=== PATIENT | male | born 1945 | race Caucasian/White ===

== ENCOUNTER 2018-07-04 05:41 | Day surgery (SDC) ==
[2018-06-28 10:04] LABS: HEMATOCRIT 44.8 % (42.0-52.0); HEMOGLOBIN 15.6 g/dL (14.0-18.0); MCH 32.5 PG (27-31); MCHC 34.8 g/dL (33-37); MCV 93.3 FL (81-99); MPV 10.2 FL (7.4-10.4); RBC 4.8 XMIL (4.7-6.1); RDW 12.6 % (11.5-14.5); WBC 6.93 X1000 (4.8-10.8)
--- NOTE | 2018-06-28 10:04 | EKG Report ---
Test Performed on : 06/28/2018 09:41:22 AM Test Reason : PAT Blood Pressure : / mmHG Vent. Rate : 076 BPM Atrial Rate : 076 BPM P-R Int : 164 ms QRS Dur : 098 ms QT Int : 390 ms P-R-T Axes : 054 032 050 degrees QTc Int : 438 ms Sinus rhythm. with occasional premature ventricular complexes. Otherwise normal ECG When compared with ECG of 20-DEC-2017 13:48, premature ventricular complexes. are now present Confirmed by Gualberto MORA, Juwan ([id number]) on 06/29/2018 8:38:17 AM
[2018-06-28 10:33] LABS: AGAP 9; BUN 16 mg/dL (8-22); CALCIUM 9.7 mg/dL (8.8-10.2); CHLORIDE 108 mmol/L (98-107); COSMO 292; CREATININE 0.8 mg/dL (0.7-1.2); ESTIMATED GFR > 60; GLUCOSE 175 mg/dL (70-104); POTASSIUM 4.8 mmol/L (3.5-5.1); SODIUM 144 mmol/L (136-145); TCO2 27 mmol/L (25-35)
[2018-07-04] MEDS ORDERED: LR 1,000 ML ONE ×2 (06:23→10:12)
[2018-07-04] MEDS ORDERED: PEPCID ONE (06:23)
[2018-07-04] MEDS ORDERED: REGLAN ONE (06:23)
[2018-07-04] MEDS ORDERED: XYLOCAINE-MPF 2% ONE (07:10)
[2018-07-04] MEDS ORDERED: DIPRIVAN 1% ONE (07:10)
[2018-07-04] MEDS ORDERED: KEFZOL 1 GM/D5W 2 GM/100 ML IVPB ONE (07:37)
[2018-07-04] MEDS ORDERED: ZOFRAN ONE (08:01)
[2018-07-04] MEDS ORDERED: DECADRON ONE (08:01)
[2018-07-04] MEDS ORDERED: B & O 15A SUPP ONE (08:12)
[2018-07-04] MEDS ORDERED: NORCO-10 PO PRN (10:30)
[2018-07-04] MEDS ORDERED: BENADRYL LIQUID PO PRN (10:30)
[2018-07-04] MEDS ORDERED: B & O 15A SUPP PR PRN (10:30)
[2018-07-04] MEDS ORDERED: DITROPAN PO PRN (10:30)
[2018-07-04] MEDS ORDERED: NORCO-7.5 PO PRN (10:30)
[2018-07-04] MEDS ORDERED: NORCO-5 PO PRN (10:30)
[2018-07-04] MEDS ORDERED: LABETALOL IV PRN (10:30)
[2018-07-04] MEDS ORDERED: SODIUM CHLORIDE 0.9% INJ PRN (10:30)
[2018-07-04] MEDS ORDERED: PHENERGAN IV PRN (10:30)
--- NOTE | 2018-07-04 10:50 | OPERATIVE NOTE ---
PROCEDURE DATE: 07/04/2018 PREOPERATIVE DIAGNOSIS: Enlarged prostate with obstructive voiding and an elevated PSA with benign transrectal prostate biopsies. POSTOPERATIVE DIAGNOSIS: Enlarged prostate with obstructive voiding and an elevated PSA with benign transrectal prostate biopsies, large bladder stone. ANESTHESIA: General via laryngeal mask. PROCEDURE PERFORMED: 1. Cystolitholapaxy. 2. Transurethral resection of the prostate. FINDINGS: 1. Cystoscopic exam: Urethra-greater than 28-Gu[place]ian without stricture. 2. Prostate-coapting lateral lobes, elevated bladder neck, length approximately 6.5 cm. 3. Bladder-normal ureteral orifices bilaterally, an approximate 3 to 3.5 cm stone, grade 2-3 trabeculations, no diverticula, no papillary lesions. INDICATION FOR PROCEDURE: This 72-year-old male has a long history of increasing PSA. He has undergone transrectal prostate ultrasound and biopsy x2, the last over a month ago when his PSA was 35. Pathology was all benign. Prostate volume by ultrasound was 80 grams. DESCRIPTION OF PROCEDURE: After informed consent was obtained and the patient receiving IV antibiotics, he was taken the main OR cystoscopy room and placed in the supine position. General anesthesia via laryngeal mask was achieved. He was then placed in a low lithotomy position and prepped and draped in the usual sterile fashion for cystoscopic exam. A 21-Guamanian sheath cystoscope was passed in patient's urethra with prostate and bladder with findings noted above. A 550 micron laser fiber was placed. The laser was set at 8 hertz and 8 fine, and the large bladder stone was fragmented. The stone fragments were removed from the bladder by irrigation. After this was completed the bladder was left distended. The cystoscope sheath was removed and a 28-Guamanian sheath resectoscope was placed. The thick gyrus loop electrode was placed. The bladder was again inspected and no stone fragments were visualized. Both ureteral orifices were visualized. The verumontanum was visualized. The resection was started 6 o'clock position going to the level of bladder neck, level of the verumontanum, proceeding in a counterclockwise direction up to the 2 o'clock position. The resection was then started back at the 6 o'clock position, going the level of bladder neck, level of the verumontanum, proceeding in a clockwise direction to the 10 o'clock position. Tissue from the anterior prostatic urethra was removed between the 2 o'clock and 10 o'clock positions from the level of bladder neck, level of the verumontanum. Hemostasis was achieved with electrocautery. The chips were removed from the bladder with the Ellik evacuators. The bladder neck was incised at the 6 o'clock position, from the trigone through the prostate capsule. At completion of the procedure, no chips were seen. Both ureteral orifices were intact. The verumontanum was intact and his prostate channel was wide open. The resectoscope was removed. A 24-Gu[place]ian 3-way Nava catheter was passed through the patient's urethra, prostate, and bladder without difficulty. 40 mL of sterile water were placed in the Nava's balloon. The efflux was light yana in color. Continuous bladder irrigation was started and it completely cleared. He tolerated the procedure well. ESTIMATED BLOOD LOSS: 350 m. DISPOSITION: He was taken to recovery room in good condition. cc: Tolu Fang MD
[2018-07-04] MEDS ORDERED: NORCO-7.5 ONE (10:57)
[2018-07-04] MEDS: HUMULIN R SUBQ SCH ×3 (11:28→22:13)
[2018-07-04] MEDS: LR 1,000 ML IV SCH (11:37)
[2018-07-04] MEDS: KEFZOL 1 GM/D5W 1 GM/50 ML IVPB IV SCH ×2 (16:02→22:13)
[2018-07-04] MEDS: COLACE PO SCH (22:13)
[2018-07-04] MEDS: PEPCID PO SCH (22:13)
[2018-07-05] MEDS: LR 1,000 ML IV SCH (03:40)
[2018-07-05] MEDS: HUMULIN R SUBQ SCH (05:18)
[2018-07-05 07:03] LABS: HEMATOCRIT 42.5 % (42.0-52.0); HEMOGLOBIN 14.2 g/dL (14.0-18.0); MCH 32.6 PG (27-31); MCHC 33.4 g/dL (33-37); MCV 97.5 FL (81-99); MPV 10.2 FL (7.4-10.4); RBC 4.36 XMIL (4.7-6.1); RDW 12.7 % (11.5-14.5); WBC 10.18 X1000 (4.8-10.8)
[2018-07-05 07:29] LABS: AGAP 9; BUN 20 mg/dL (8-22); CALCIUM 9.1 mg/dL (8.8-10.2); CHLORIDE 102 mmol/L (98-107); COSMO 285; CREATININE 0.9 mg/dL (0.7-1.2); ESTIMATED GFR > 60; GLUCOSE 153 mg/dL (70-104); POTASSIUM 4.9 mmol/L (3.5-5.1); SODIUM 140 mmol/L (136-145); TCO2 29 mmol/L (25-35)
[2018-07-05] MEDS ORDERED: GLUCOPHAGE PO SCH (08:00)
[2018-07-05 08:10] VITALS: BP 151/89
[2018-07-05] MEDS: COLACE PO SCH (08:52)
[2018-07-05] MEDS: PEPCID PO SCH (08:52)
[2018-07-05] MEDS ORDERED: LOTENSIN PO SCH (09:00)
[2018-07-05] MEDS ORDERED: TENORMIN PO SCH (09:00)
[2018-07-05] MEDS ORDERED: ASPIRIN PO SCH (09:00)
[2018-07-05] MEDS ORDERED: THERA M PLUS PO SCH (09:00)
== END 2018-07-05 10:31 | disposition home or self-care (01) ==
LOC: OPS 05:41 → PAT 05:41 → 4N 05:41 → OPS 07-05 10:31
PROVIDERS: ATTEND Urology
PROC: UR.TURP (2018-07-04 07:46)
CPT/HCPCS: 80048; 82360; 82948; 85027; 88300; 88305; 93005; 93010; 94761; 94799; A9270; J0690; J1100; J2405; J7120; XXXXX